=== PATIENT | female | born 1935 | race Two or more races ===

== ENCOUNTER 2020-07-18 09:17 | Inpatient (IN) | payer MEDICARE, MEDICAID ==
[~2020-07-18] VITALS: Ht 149.9 cm; Wt 53.8 kg
[2020-07-18] MEDS ORDERED: SODIUM CHLORIDE 0.9% 1,000 ML IV ONE (09:45)
[2020-07-18] MEDS ORDERED: InsuLIN REG 1unit/0.01ml Soln (100units/ml) IV ONE (09:45)
[2020-07-18 10:12] LABS: Basophils # (auto) 0 10 ^3/uL (0-0.2); Basophils % (auto) 0.4 % (0.0-2.0); Eosinophils # (auto) 0 10 ^3/uL (0-0.8); Hematocrit 31.2 % (36.0-46.0); Hemoglobin 10.6 g/dL (12.2-16.2); Lymphocytes # (auto) 0.5 10 ^3/uL (0.4-5.4); Lymphocytes % (auto) 12.5 % (10.0-50.0); Mean Corpuscular Hemoglobin 28.6 pg (28.0-32.0); Mean Corpuscular Hgb Conc. 34.1 g/dL (32.0-36.0); Mean Corpuscular Volume 83.9 fL (80.0-100.0); Monocytes # (auto) 0.3 10 ^3/uL (0-1.3); Monocytes % (auto) 7.3 % (0.0-12.0); Neutrophils # (auto) 3.5 10 ^3/uL (1.6-8.6); Neutrophils % (auto) 79.8 % (37.0-80.0); Red Blood Cells 3.72 10^6/uL (4.0-5.20); Red Cell Distribution Width 15.2 % (11.8-14.3); White Blood Cell 4.4 10^3/uL (4.4-10.8)
[2020-07-18 10:28] LABS: Alanine Aminotransferase 28 U/L (13-56); Albumin 3.1 g/dL (3.4-5.0); Anion Gap 12 (5-15); Blood Urea Nitrogen 22 mg/dL (7-18); Calcium 8.7 mg/dL (8.5-10.1); Carbon Dioxide 19 mmol/L (21-32); Chloride 96 mmol/L (98-107); Glucose 307 mg/dL (74-106); Lipase 276 U/L (73-393); Sodium 127 mmol/L (136-145)
[2020-07-18 10:33] LABS: Alkaline Phosphatase 42 U/L (45-117); Aspartate Aminotransferase 31 U/L (15-37); BUN/Creatinine Ratio 13.5; Bilirubin, Total 0.5 mg/dL (0.2-1.0); GFR African American 39 mL/min; GFR Non-African American 32 mL/min; Total Protein 7.3 g/dL (6.4-8.2)
[2020-07-18] MEDS ORDERED: AZITHROMYCIN 500MG/ 250ML 250 ML IV ONE (10:45)
[2020-07-18] MEDS ORDERED: cefTRIAXone 1GM/50ML D5W 50 ML IV ONE (10:45)
[2020-07-18] MEDS ORDERED: MORPHINE SULFATE INJECTION 2 MG/ML SYRG IV PRN (11:30)
[2020-07-18] MEDS ORDERED: NITROGLYCERIN 0.4 MG SL TAB SL PRN (11:30)
[2020-07-18] MEDS ORDERED: REMDESIVIR PER PHARMACY 0 ML IV SCH (11:45)
[2020-07-18] MEDS ORDERED: traMADol HCL 50 MG TAB PO PRN (11:45)
[2020-07-18] MEDS ORDERED: LACTULOSE 20Gm/30ML SOLN PO PRN (11:45)
[2020-07-18] MEDS ORDERED: DEXTROSE (50%) 50ML SYRG IV PRN (11:45)
[2020-07-18] MEDS ORDERED: levoFLOXacin 500MG 100 ML IV ONE (11:45)
[2020-07-18] MEDS ORDERED: ACETAMINOPHEN 500 MG TAB PO PRN (11:45)
[2020-07-18] MEDS ORDERED: ONDANSETRON HCL 4 MG/2 ML VIAL IV PRN (11:45)
[2020-07-18] MEDS: SODIUM CHLORIDE 0.9% 1,000 ML IV SCH (12:01)
[2020-07-18 12:48] VITALS: BP 128/70
[2020-07-18 12:54] VITALS: BP 124/68
[2020-07-18 14:13] VITALS: BP 124/68
[2020-07-18] MEDS: ACCU-CHEK COMFORT CURVE STRIP VI SCH ×2 (16:52→22:00)
[2020-07-18 17:00] VITALS: BP 124/72
[2020-07-18] MEDS: InsuLIN REG 1unit/0.01ml Soln (100units/ml) SC SCH ×2 (17:05→22:00)
[2020-07-18 17:27] LABS: Urine Bacteria NONE SEEN /hpf (None Seen); Urine Blood Negative /uL (Negative); Urine Specific Gravity 1.011 (1.001-1.035); Urine WBC 1 /hpf (0 - 5)
[2020-07-18] MEDS: ALBUTEROL SULF HFA 90MCG INH 200DOSE IN PRN (19:05)
[2020-07-18] MEDS: BUDESONIDE (INHALATION) 180 MCG IH IN SCH (19:05)
[2020-07-18 22:00] VITALS: BP 106/65
[2020-07-18] MEDS ORDERED: ENOXAPARIN SOD 40 MG/0.4 ML SYRINGE SC SCH (22:00)
[2020-07-18] MEDS ORDERED: FAMOTIDINE 20 MG TAB PO SCH (22:00)
[2020-07-18] MEDS: FLORASTOR (S. BOULARDII) 250 MG CAP PO SCH (22:05)
[2020-07-19] MEDS: SODIUM CHLORIDE 0.9% 1,000 ML IV SCH (01:15)
[2020-07-19 05:00] VITALS: BP 132/73
[2020-07-19] MEDS: ALBUTEROL SULF HFA 90MCG INH 200DOSE IN PRN (06:43)
[2020-07-19] MEDS: BUDESONIDE (INHALATION) 180 MCG IH IN SCH (06:43)
[2020-07-19] MEDS: ACCU-CHEK COMFORT CURVE STRIP VI SCH ×2 (06:44→11:12)
[2020-07-19] MEDS: InsuLIN REG 1unit/0.01ml Soln (100units/ml) SC SCH ×2 (06:44→11:13)
[2020-07-19] MEDS ORDERED: IVERMECTIN 3 MG TAB PO ONE (07:00)
[2020-07-19 07:31] LABS: Basophils # (auto) 0 10 ^3/uL (0-0.2); Basophils % (auto) 0.2 % (0.0-2.0); Eosinophils # (auto) 0 10 ^3/uL (0-0.8); Hematocrit 29.5 % (36.0-46.0); Hemoglobin 10.2 g/dL (12.2-16.2); Lymphocytes % (auto) 22.9 % (10.0-50.0); Mean Corpuscular Hemoglobin 28.6 pg (28.0-32.0); Mean Corpuscular Hgb Conc. 34.7 g/dL (32.0-36.0); Mean Corpuscular Volume 82.4 fL (80.0-100.0); Monocytes # (auto) 0.4 10 ^3/uL (0-1.3); Monocytes % (auto) 8.4 % (0.0-12.0); Neutrophils # (auto) 2.9 10 ^3/uL (1.6-8.6); Neutrophils % (auto) 68.5 % (37.0-80.0); Nucleated Red Blood Cells % 0.2 %; Red Blood Cells 3.58 10^6/uL (4.0-5.20); White Blood Cell 4.3 10^3/uL (4.4-10.8)
[2020-07-19 07:47] LABS: Albumin 2.9 g/dL (3.4-5.0); Calcium 8.7 mg/dL (8.5-10.1); Potassium 4.2 mmol/L (3.5-5.1)
[2020-07-19 07:51] LABS: BUN/Creatinine Ratio 12.5; Bilirubin, Total 0.4 mg/dL (0.2-1.0); Total Protein 6.9 g/dL (6.4-8.2)
[2020-07-19 08:13] VITALS: BP 121/63
[2020-07-19] MEDS: FLORASTOR (S. BOULARDII) 250 MG CAP PO SCH (09:11)
[2020-07-19] MEDS ORDERED: ZINC SULFATE 220mg CAP or TAB PO SCH (10:00)
[2020-07-19] MEDS ORDERED: ASCORBIC ACID 1,000 MG TAB PO SCH (10:00)
[2020-07-19] MEDS ORDERED: levoFLOXacin 500MG 100 ML IV SCH (10:00)
[2020-07-19] MEDS ORDERED: CHOLECALCIFEROL (VITD3) 2,000 UNIT CAP/TAB PO SCH (10:00)
[2020-07-19] MEDS ORDERED: DexAMETHasone SOD PHOS 10MG/1ML VIAL INJ IV SCH (10:00)
[2020-07-19] MEDS ORDERED: CHOL1CAP47 PO ×2 (10:59→11:10)
[2020-07-19] MEDS ORDERED: ASCO10003 PO ×2 (10:59→11:10)
[2020-07-19] MEDS ORDERED: LEVO750T64 PO ×2 (10:59→11:10)
[2020-07-19 12:56] VITALS: BP 121/63
== END 2020-07-19 13:40 | disposition home or self-care (01) | DRG 177 ==
LOC: ER 09:17 → TELE-EAST 09:18
PROVIDERS: ADMIT Internal Medicine; ATTEND Internal Medicine
DX: U07.1 COVID-19 (principal); J12.82 Pneumonia due to coronavirus disease 2019; E11.65 Type 2 diabetes mellitus with hyperglycemia; I10 Essential (primary) hypertension; K57.30 Diverticulosis of large intestine without perforation or abscess without bleeding; K52.9 Noninfective gastroenteritis and colitis, unspecified
CPT/HCPCS: 36415; 71045; 74176; 80053; 81001; 82962; 83036; 83690; 84484; 85025; 87426; 93005; 94640; 96361; 96365; 96368; 96375; G0378; J0696; J1100; J1815; J1956

== ENCOUNTER 2020-07-22 17:01 | Inpatient (IN) | payer MEDICARE, MEDICAID ==
[~2020-07-22] VITALS: Ht 157.5 cm; Wt 62.1 kg
[~2020-07-22 17:01] MED LIST: ASCO10003 PO; CHOL1CAP47 PO; LEVO750T64 PO
[2020-07-22] MEDS ORDERED: methylPREDNISolone SOD SUCC 125 MG/2 ML VL IV ONE (17:15)
[2020-07-22 17:48] LABS: Basophils # (auto) 0 10 ^3/uL (0-0.2); Basophils % (auto) 0.2 % (0.0-2.0); Eosinophils # (auto) 0 10 ^3/uL (0-0.8); Hematocrit 31.7 % (36.0-46.0); Lymphocytes # (auto) 0.8 10 ^3/uL (0.4-5.4); Lymphocytes % (auto) 12.7 % (10.0-50.0); Mean Corpuscular Hemoglobin 27.9 pg (28.0-32.0); Mean Corpuscular Hgb Conc. 34.9 g/dL (32.0-36.0); Monocytes # (auto) 0.6 10 ^3/uL (0-1.3); Monocytes % (auto) 9.9 % (0.0-12.0); Neutrophils % (auto) 77.2 % (37.0-80.0); Nucleated Red Blood Cells % 0.1 %; Platelet Count (auto) 384 10^3/uL (140-450); Red Blood Cells 3.96 10^6/uL (4.0-5.20); Red Cell Distribution Width 14.9 % (11.8-14.3); White Blood Cell 6.5 10^3/uL (4.4-10.8)
[2020-07-22 17:59] LABS: Albumin 2.8 g/dL (3.4-5.0); Anion Gap 14 (5-15); Blood Urea Nitrogen 21 mg/dL (7-18); Calcium 8.7 mg/dL (8.5-10.1); Carbon Dioxide 18 mmol/L (21-32); Chloride 89 mmol/L (98-107); Glucose 190 mg/dL (74-106); Potassium 3.8 mmol/L (3.5-5.1); Sodium 121 mmol/L (136-145)
[2020-07-22 18:07] LABS: Alanine Aminotransferase 36 U/L (13-56); Alkaline Phosphatase 50 U/L (45-117); Aspartate Aminotransferase 42 U/L (15-37); Bilirubin, Total 0.6 mg/dL (0.2-1.0); CRP High Sensitivity 1.97 mg/dL (< 0.3); GFR African American 46 mL/min; GFR Non-African American 38 mL/min; Total Protein 7.4 g/dL (6.4-8.2)
[2020-07-22] MEDS ORDERED: SODIUM CHLORIDE 0.9% 500 ML IV ONE (19:30)
[2020-07-22] MEDS ORDERED: MORPHINE SULF INJ 2 MG/ML SYRINGE 1ML IV PRN (19:45)
[2020-07-22] MEDS ORDERED: NITROGLYCERIN 0.4 MG SL TAB SL PRN (19:45)
[2020-07-22] MEDS ORDERED: DEXTROSE (50%) 50ML SYRG IV PRN (19:45)
[2020-07-22] MEDS ORDERED: ALBUTEROL SULF HFA 90MCG INH 200DOSE IN PRN (19:45)
[2020-07-22] MEDS: SODIUM CHLORIDE 0.9% 1,000 ML IV SCH (19:45)
[2020-07-22 20:52] VITALS: BP 112/61
[2020-07-22] MEDS: ASCORBIC ACID 1,000 MG TAB PO SCH (21:11)
[2020-07-22] MEDS: CHOLECALCIFEROL (VITD3) 2,000 UNIT CAP/TAB PO SCH (21:11)
[2020-07-22] MEDS: ENOXAPARIN SOD 40 MG/0.4 ML SYRINGE SC SCH (21:11)
[2020-07-22] MEDS: ZINC SULFATE 220mg CAP or TAB PO SCH (21:11)
[2020-07-22] MEDS: ACCU-CHEK COMFORT CURVE STRIP VI SCH (21:50)
[2020-07-22] MEDS: InsuLIN REG 1unit/0.01ml Soln (100units/ml) SC SCH (21:51)
[2020-07-22] MEDS ORDERED: METF-370 PO (22:04)
[2020-07-22 23:14] VITALS: BP 120/54
[2020-07-23 05:41] VITALS: BP 131/55
[2020-07-23 05:53] LABS: Basophils # (auto) 0 10 ^3/uL (0-0.2); Basophils % (auto) 0.2 % (0.0-2.0); Eosinophils # (auto) 0 10 ^3/uL (0-0.8); Eosinophils % (auto) 0.1 % (0.0-7.0); Hematocrit 27.4 % (36.0-46.0); Hemoglobin 9.9 g/dL (12.2-16.2); Lymphocytes # (auto) 0.8 10 ^3/uL (0.4-5.4); Mean Corpuscular Hemoglobin 28.8 pg (28.0-32.0); Mean Corpuscular Volume 79.9 fL (80.0-100.0); Monocytes # (auto) 0.4 10 ^3/uL (0-1.3); Monocytes % (auto) 10.8 % (0.0-12.0); Neutrophils # (auto) 2.9 10 ^3/uL (1.6-8.6); Neutrophils % (auto) 69.9 % (37.0-80.0); Platelet Count (auto) 307 10^3/uL (140-450); Red Blood Cells 3.42 10^6/uL (4.0-5.20); Red Cell Distribution Width 14.6 % (11.8-14.3); White Blood Cell 4.1 10^3/uL (4.4-10.8)
[2020-07-23] MEDS: SODIUM CHLORIDE 0.9% 1,000 ML IV SCH (05:59)
[2020-07-23 06:04] LABS: Albumin 2.4 g/dL (3.4-5.0); Calcium 7.9 mg/dL (8.5-10.1); Potassium 3.7 mmol/L (3.5-5.1)
[2020-07-23 06:08] LABS: BUN/Creatinine Ratio 16.2; Bilirubin, Total 0.4 mg/dL (0.2-1.0); Total Protein 6.2 g/dL (6.4-8.2)
[2020-07-23] MEDS: InsuLIN REG 1unit/0.01ml Soln (100units/ml) SC SCH ×4 (06:29→21:46)
[2020-07-23] MEDS: ACCU-CHEK COMFORT CURVE STRIP VI SCH ×4 (06:30→21:44)
[2020-07-23 08:30] VITALS: BP 115/63
[2020-07-23] MEDS: ZINC SULFATE 220mg CAP or TAB PO SCH (09:04)
[2020-07-23] MEDS: ENOXAPARIN SOD 40 MG/0.4 ML SYRINGE SC SCH (09:04)
[2020-07-23] MEDS: PANTOPRAZOLE 40 MG TAB PO SCH (09:04)
[2020-07-23] MEDS: ASCORBIC ACID 1,000 MG TAB PO SCH (09:04)
[2020-07-23] MEDS: CHOLECALCIFEROL (VITD3) 2,000 UNIT CAP/TAB PO SCH (09:04)
[2020-07-23] MEDS ORDERED: SODIUM CHLORIDE 0.9% 1,000 ML IV ONE (11:15)
[2020-07-23] MEDS ORDERED: DexAMETHasone SOD PHOS 10MG/1ML VIAL INJ IV ONE (11:15)
[2020-07-23] MEDS ORDERED: REMDESIVIR PER PHARMACY 0 ML IV SCH (11:15)
[2020-07-23 12:30] VITALS: BP 120/73
[2020-07-23] MEDS ORDERED: REMDESIVIR 200 MG in NS 210ml LOADING DOSE ADULT IV ONE (15:00)
[2020-07-23 17:00] VITALS: BP 152/76
[2020-07-23 20:00] VITALS: BP 107/64
[2020-07-23] MEDS: ENOXAPARIN SOD 60 MG/0.6 ML SYRINGE SC SCH (21:44)
[2020-07-23 22:00] VITALS: BP 107/64
[2020-07-24] VITALS (8 sets, daily range): BP systolic 112–143; BP diastolic 56–70
[2020-07-24] MEDS: ACCU-CHEK COMFORT CURVE STRIP VI SCH ×4 (06:49→21:49)
[2020-07-24] MEDS: InsuLIN REG 1unit/0.01ml Soln (100units/ml) SC SCH ×4 (06:59→21:49)
[2020-07-24 07:08] LABS: Potassium 3.2 mmol/L (3.5-5.1)
[2020-07-24 07:13] LABS: Albumin 2.4 g/dL (3.4-5.0); BUN/Creatinine Ratio 15.3; Bilirubin, Total 0.3 mg/dL (0.2-1.0); Calcium 8.8 mg/dL (8.5-10.1); Total Protein 6.4 g/dL (6.4-8.2)
[2020-07-24] MEDS: PANTOPRAZOLE 40 MG TAB PO SCH (09:06)
[2020-07-24] MEDS: CHOLECALCIFEROL (VITD3) 2,000 UNIT CAP/TAB PO SCH (09:07)
[2020-07-24] MEDS: DexAMETHasone SOD PHOS 10MG/1ML VIAL INJ IV SCH (09:07)
[2020-07-24] MEDS: ASCORBIC ACID 1,000 MG TAB PO SCH (09:07)
[2020-07-24] MEDS: ZINC SULFATE 220mg CAP or TAB PO SCH (09:07)
[2020-07-24] MEDS: ENOXAPARIN SOD 60 MG/0.6 ML SYRINGE SC SCH ×2 (09:07→21:55)
[2020-07-24] MEDS ORDERED: POTASSIUM CHL 20 Meq TABLET PO ONE (11:30)
[2020-07-24] MEDS: REMDESIVIR 100mg 100 MG in SODIUM CHL 0.9% 230 ML IV SCH (14:41)
[2020-07-25] VITALS (7 sets, daily range): BP systolic 100–140; BP diastolic 59–68
[2020-07-25 05:41] LABS: Basophils # (auto) 0 10 ^3/uL (0-0.2); Basophils % (auto) 0.2 % (0.0-2.0); Eosinophils # (auto) 0 10 ^3/uL (0-0.8); Eosinophils % (auto) 0.7 % (0.0-7.0); Hematocrit 28.1 % (36.0-46.0); Hemoglobin 9.8 g/dL (12.2-16.2); Lymphocytes # (auto) 1.2 10 ^3/uL (0.4-5.4); Lymphocytes % (auto) 20.4 % (10.0-50.0); Mean Corpuscular Hemoglobin 28.2 pg (28.0-32.0); Mean Corpuscular Hgb Conc. 34.9 g/dL (32.0-36.0); Mean Corpuscular Volume 80.7 fL (80.0-100.0); Monocytes # (auto) 0.6 10 ^3/uL (0-1.3); Monocytes % (auto) 9.5 % (0.0-12.0); Neutrophils # (auto) 4.2 10 ^3/uL (1.6-8.6); Neutrophils % (auto) 69.2 % (37.0-80.0); Nucleated Red Blood Cells % 0.1 %; Platelet Count (auto) 357 10^3/uL (140-450); Red Blood Cells 3.49 10^6/uL (4.0-5.20); Red Cell Distribution Width 14.8 % (11.8-14.3)
[2020-07-25 06:12] LABS: Albumin 2.5 g/dL (3.4-5.0); BUN/Creatinine Ratio 18.9; Bilirubin, Total 0.3 mg/dL (0.2-1.0); Calcium 8.6 mg/dL (8.5-10.1); Total Protein 6.2 g/dL (6.4-8.2)
[2020-07-25] MEDS: InsuLIN REG 1unit/0.01ml Soln (100units/ml) SC SCH ×4 (06:52→21:51)
[2020-07-25] MEDS: ACCU-CHEK COMFORT CURVE STRIP VI SCH ×4 (06:52→21:50)
[2020-07-25] MEDS: ASCORBIC ACID 1,000 MG TAB PO SCH (09:10)
[2020-07-25] MEDS: CHOLECALCIFEROL (VITD3) 2,000 UNIT CAP/TAB PO SCH (09:10)
[2020-07-25] MEDS: ZINC SULFATE 220mg CAP or TAB PO SCH (09:10)
[2020-07-25] MEDS: DexAMETHasone SOD PHOS 10MG/1ML VIAL INJ IV SCH (09:10)
[2020-07-25] MEDS: PANTOPRAZOLE 40 MG TAB PO SCH (09:10)
[2020-07-25] MEDS: ENOXAPARIN SOD 60 MG/0.6 ML SYRINGE SC SCH ×2 (09:11→21:53)
[2020-07-25] MEDS: REMDESIVIR 100mg 100 MG in SODIUM CHL 0.9% 230 ML IV SCH (14:30)
[2020-07-25] MEDS ORDERED: cefTRIAXone 1GM/50ML D5W 50 ML IV ONE (14:45)
[2020-07-25] MEDS ORDERED: DOXYCYCLINE 100 MG TAB/CAP PO ONE (14:45)
[2020-07-25] MEDS: DOXYCYCLINE 100 MG TAB/CAP PO SCH (21:53)
[2020-07-26 01:00] VITALS: BP 100/62
[2020-07-26 05:00] VITALS: BP 125/68
[2020-07-26 06:04] LABS: Albumin 2.6 g/dL (3.4-5.0); Calcium 8.9 mg/dL (8.5-10.1); Potassium 4.4 mmol/L (3.5-5.1)
[2020-07-26 06:07] LABS: BUN/Creatinine Ratio 22.6; Bilirubin, Total 0.3 mg/dL (0.2-1.0); Total Protein 6.5 g/dL (6.4-8.2)
[2020-07-26] MEDS: ACCU-CHEK COMFORT CURVE STRIP VI SCH ×4 (06:52→21:23)
[2020-07-26] MEDS: InsuLIN REG 1unit/0.01ml Soln (100units/ml) SC SCH ×4 (06:52→21:23)
[2020-07-26 08:30] VITALS: BP 113/52
[2020-07-26] MEDS: ZINC SULFATE 220mg CAP or TAB PO SCH (09:57)
[2020-07-26] MEDS: cefTRIAXone 1GM/50ML D5W 50 ML IV SCH (09:57)
[2020-07-26] MEDS: PANTOPRAZOLE 40 MG TAB PO SCH (09:57)
[2020-07-26] MEDS: DOXYCYCLINE 100 MG TAB/CAP PO SCH ×2 (09:58→21:34)
[2020-07-26] MEDS: ENOXAPARIN SOD 60 MG/0.6 ML SYRINGE SC SCH ×2 (09:59→21:34)
[2020-07-26] MEDS: CHOLECALCIFEROL (VITD3) 2,000 UNIT CAP/TAB PO SCH (09:59)
[2020-07-26] MEDS: ASCORBIC ACID 1,000 MG TAB PO SCH (09:59)
[2020-07-26 12:34] VITALS: BP 141/61
[2020-07-26 16:35] VITALS: BP 110/70
[2020-07-26 22:21] VITALS: BP 110/61
[2020-07-27 05:00] VITALS: BP 123/60
[2020-07-27 06:47] LABS: Potassium 4.1 mmol/L (3.5-5.1)
[2020-07-27 06:58] LABS: Albumin 2.4 g/dL (3.4-5.0); BUN/Creatinine Ratio 23.4; Bilirubin, Total 0.4 mg/dL (0.2-1.0); Calcium 8.6 mg/dL (8.5-10.1); Total Protein 6.3 g/dL (6.4-8.2)
[2020-07-27] MEDS: InsuLIN REG 1unit/0.01ml Soln (100units/ml) SC SCH ×3 (07:00→17:00)
[2020-07-27] MEDS: ACCU-CHEK COMFORT CURVE STRIP VI SCH ×3 (07:04→17:00)
[2020-07-27 09:00] VITALS: BP 92/52
[2020-07-27] MEDS: cefTRIAXone 1GM/50ML D5W 50 ML IV SCH (09:00)
[2020-07-27] MEDS: PANTOPRAZOLE 40 MG TAB PO SCH (10:30)
[2020-07-27] MEDS: ZINC SULFATE 220mg CAP or TAB PO SCH (10:30)
[2020-07-27] MEDS: ENOXAPARIN SOD 60 MG/0.6 ML SYRINGE SC SCH (10:30)
[2020-07-27] MEDS: ASCORBIC ACID 1,000 MG TAB PO SCH (10:30)
[2020-07-27] MEDS: DOXYCYCLINE 100 MG TAB/CAP PO SCH (10:30)
[2020-07-27] MEDS: CHOLECALCIFEROL (VITD3) 2,000 UNIT CAP/TAB PO SCH (10:30)
[2020-07-27 11:50] LABS: Basophils # (auto) 0 10 ^3/uL (0-0.2); Basophils % (auto) 0.3 % (0.0-2.0); Eosinophils # (auto) 0 10 ^3/uL (0-0.8); Eosinophils % (auto) 0.5 % (0.0-7.0); Hematocrit 31.8 % (36.0-46.0); Hemoglobin 11.1 g/dL (12.2-16.2); Lymphocytes # (auto) 1.6 10 ^3/uL (0.4-5.4); Mean Corpuscular Hemoglobin 28.3 pg (28.0-32.0); Mean Corpuscular Hgb Conc. 34.8 g/dL (32.0-36.0); Mean Corpuscular Volume 81.4 fL (80.0-100.0); Monocytes # (auto) 0.6 10 ^3/uL (0-1.3); Monocytes % (auto) 9.1 % (0.0-12.0); Neutrophils # (auto) 4.8 10 ^3/uL (1.6-8.6); Neutrophils % (auto) 68.1 % (37.0-80.0); Nucleated Red Blood Cells % 0.3 %; Platelet Count (auto) 400 10^3/uL (140-450); Red Blood Cells 3.91 10^6/uL (4.0-5.20); Red Cell Distribution Width 15.1 % (11.8-14.3); White Blood Cell 7.1 10^3/uL (4.4-10.8)
[2020-07-27 12:10] VITALS: BP 92/52
[2020-07-27 13:00] VITALS: BP 113/69
[2020-07-27 17:00] VITALS: BP 111/67
== END 2020-07-27 18:45 | disposition home or self-care (01) | DRG 871 ==
LOC: ER 17:01 → TELE 19:40 → TELE-EAST 21:45
PROVIDERS: ADMIT Nurse Practitioner Acute Care; ATTEND Internal Medicine Nephrology
PROC: XW033E5 Introduction of Remdesivir Anti-infective into Peripheral Vein, Percutaneous Approach, New Technology Group 5 (ICD-10-PCS; principal; 2020-07-23)
DX: A41.89 Other specified sepsis (principal); U07.1 COVID-19; J12.82 Pneumonia due to coronavirus disease 2019; J96.01 Acute respiratory failure with hypoxia; E87.1 Hypo-osmolality and hyponatremia; D68.59 Other primary thrombophilia; E87.2 Acidosis; N17.9 Acute kidney failure, unspecified; I82.411 Acute embolism and thrombosis of right femoral vein; R65.20 Severe sepsis without septic shock; E87.8 Other disorders of electrolyte and fluid balance, not elsewhere classified; N18.31 Chronic kidney disease, stage 3a; E11.65 Type 2 diabetes mellitus with hyperglycemia; E11.22 Type 2 diabetes mellitus with diabetic chronic kidney disease; I12.9 Hypertensive chronic kidney disease with stage 1 through stage 4 chronic kidney disease, or unspecified chronic kidney disease
CPT/HCPCS: 36415; 71045; 80053; 82728; 82962; 83930; 84484; 85025; 85379; 86141; 87081; 87426; 93005; 93970; 96361; 96374; G0378; J0696; J1100; J1815

== ENCOUNTER 2020-07-31 18:46 | Emergency (ER) | payer MEDICARE, MEDICAID ==
[~2020-07-31] VITALS: Ht 127 cm; Wt 59.0 kg
[~2020-07-31 18:46] MED LIST changes: -LEVO750T64 PO; +METF-370 PO
[2020-07-31] MEDS ORDERED: SODIUM CHLORIDE 0.9% 500 ML IV ONE (19:00)
[2020-07-31 19:37] LABS: Basophils # (auto) 0 10 ^3/uL (0-0.2); Basophils % (auto) 0.2 % (0.0-2.0); Eosinophils # (auto) 0 10 ^3/uL (0-0.8); Eosinophils % (auto) 0.2 % (0.0-7.0); Hemoglobin 11.5 g/dL (12.2-16.2); Lymphocytes # (auto) 1.6 10 ^3/uL (0.4-5.4); Lymphocytes % (auto) 19.1 % (10.0-50.0); Monocytes # (auto) 0.5 10 ^3/uL (0-1.3); Monocytes % (auto) 6.4 % (0.0-12.0); Neutrophils # (auto) 6.2 10 ^3/uL (1.6-8.6); Neutrophils % (auto) 74.1 % (37.0-80.0); Nucleated Red Blood Cells % 0.1 %; Platelet Count (auto) 369 10^3/uL (140-450); Red Blood Cells 3.97 10^6/uL (4.0-5.20); Red Cell Distribution Width 15.7 % (11.8-14.3); White Blood Cell 8.3 10^3/uL (4.4-10.8)
[2020-07-31 19:49] LABS: Albumin 2.5 g/dL (3.4-5.0); Anion Gap 16 (5-15); Blood Urea Nitrogen 52 mg/dL (7-18); Calcium 8.3 mg/dL (8.5-10.1); Carbon Dioxide 15 mmol/L (21-32); Chloride 100 mmol/L (98-107); Glucose 188 mg/dL (74-106); Sodium 131 mmol/L (136-145)
[2020-07-31 19:51] LABS: Alanine Aminotransferase 27 U/L (13-56); Aspartate Aminotransferase 20 U/L (15-37); BUN/Creatinine Ratio 29.7; GFR African American 36 mL/min; GFR Non-African American 30 mL/min
[2020-07-31 19:56] LABS: Alkaline Phosphatase 74 U/L (45-117); Bilirubin, Total 0.5 mg/dL (0.2-1.0); Total Protein 6.3 g/dL (6.4-8.2)
[2020-07-31 23:37] VITALS: BP 105/58
== END 2020-07-31 23:35 | disposition home or self-care (01) ==
LOC: ER 18:46
DX: R41.82 Altered mental status, unspecified (principal); R07.9 Chest pain, unspecified; R53.1 Weakness; E11.9 Type 2 diabetes mellitus without complications; I10 Essential (primary) hypertension
CPT/HCPCS: 36415; 70450; 71045; 80053; 82728; 83880; 84484; 85025; 86141; 93005; 96360; 99285; J7040